=== PATIENT | female | born 1995 | race African-American/Black ===

== ENCOUNTER 2016-07-11 15:26 | Emergency (ER) | payer OTHER ==
[~2016-07-11] VITALS: Ht 167.6 cm; Wt 63.7 kg
[~2016-07-11 15:26] MED LIST: ENDOCET 5-3251 EACH PO; IBUPROFEN800 MG PO; MACROBID100 MG PO; MOBIC7.5 MG PO; NAPROSYN500 MG PO; NIFEDIPINE ER30 MG PO; PERCOCET 5/31 TABLET PO; PRENATAL FORMU1 EAC3 PO; PRENATAL PLUS1 EAC3 PO; PROMETHAZINE HC25 M1 PO; TAMIFLU30 MG PO; TORADOL10 MG PO; TYLENOL EXTRA500 MG PO; ZOFRAN ODT4 MG PO
[2016-07-11 16:24] LABS: HEMATOCRIT 46.5 % (36.0-46.0); MCH 25.5 PG (29.0-34.0); MCHC 33.8 G/DL (30.0-36.0); MCV 75.6 FL (83-99); MEAN PLAT.VOLUME 9.9 uM^3 (9.5-12.4); PLATELET COUNT 387 K/uL (156-360); RBC DIS.WIDTH-CV 15.5 % (11.8-14.6); RBC DIS.WIDTH-SD 42.1 % (39-53); RED BLOOD COUNT 6.15 M/uL (3.80-5.20); WHITE BLOOD COUNT 9.7 K/uL (4.1-10.2)
[2016-07-11 16:34] LABS: CHLORIDE 98 mEq/L (99-109); POTASSIUM 3.1 mEq/L (3.7-5.4); SODIUM 139 mEq/L (136-147)
[2016-07-11 16:37] LABS: GLUCOSE 108 mg/dL (70-99)
[2016-07-11 16:38] LABS: ANION GAP 12 MEQ/L (2-14)
[2016-07-11 16:39] LABS: TOTAL BILIRUBIN 0.8 mg/dL (0.0-1.0)
[2016-07-11 16:40] LABS: ALKALINE PHOSPHATASE 75 IU/L (3-129)
[2016-07-11 16:41] LABS: GFR ESTIMATE (CALCULATED) > 59 mL/min/
[2016-07-11 16:42] LABS: DIRECT BILIRUBIN 0.3 mg/dL (0.0-0.3); UREA NITROGEN (BUN) 22 mg/dL (9-23)
[2016-07-11 16:44] LABS: LIPASE 16 U/L (1.0-51.0)
[2016-07-11] MEDS ORDERED: ZOFRAN4 MG PO (17:23)
[2016-07-11 17:50] LABS: QUANTITATIVE HCG < 4.0 MIU/ML
[2016-07-11 18:06] VITALS: BP 125/80
== END 2016-07-11 18:31 | disposition home or self-care (01) ==
LOC: EME 15:26
PROVIDERS: Emergency Medicine
DX: E86.0 Dehydration (principal); R11.2 Nausea with vomiting, unspecified; F17.200 Nicotine dependence, unspecified, uncomplicated
CPT/HCPCS: 80048; 80076; 81003; 83690; 84702; 85027; 99281; 99284; J2405; J7030

== ENCOUNTER 2016-08-25 17:40 | Observation (INO) | payer OTHER ==
[~2016-08-25] VITALS: Ht 167.6 cm; Wt 65.7 kg
[~2016-08-25 17:40] MED LIST changes: +ZOFRAN4 MG PO
[2016-08-25 18:07] LABS: HEMATOCRIT 47.6 % (36.0-46.0); MCHC 32.8 G/DL (30.0-36.0); MCV 79.2 FL (83-99); MEAN PLAT.VOLUME 10.4 uM^3 (9.5-12.4); PLATELET COUNT 442 K/uL (156-360); RBC DIS.WIDTH-CV 14.7 % (11.8-14.6); RBC DIS.WIDTH-SD 42.2 % (39-53); RED BLOOD COUNT 6.01 M/uL (3.80-5.20); WHITE BLOOD COUNT 10.8 K/uL (4.1-10.2)
[2016-08-25 18:23] LABS: CHLORIDE 93 mEq/L (99-109); POTASSIUM 3.4 mEq/L (3.7-5.4); SODIUM 137 mEq/L (136-147)
[2016-08-25 18:25] LABS: GLUCOSE 120 mg/dL (70-99)
[2016-08-25 18:26] LABS: ANION GAP 14 MEQ/L (2-14)
[2016-08-25 18:28] LABS: ALKALINE PHOSPHATASE 63 IU/L (3-129)
[2016-08-25 18:29] LABS: GFR ESTIMATE (CALCULATED) 42 mL/min/
[2016-08-25 18:30] LABS: UREA NITROGEN (BUN) 29 mg/dL (9-23)
[2016-08-25 18:37] LABS: QUANTITATIVE HCG < 4.0 MIU/ML
[2016-08-25 19:50] LABS: LIPASE 7 U/L (1.0-51.0)
[2016-08-25 22:32] LABS: ADD MIUA? YES; BILIRUBIN NEGATIVE; BLOOD NEGATIVE; COLOR AMBER ((YELLOW)); GLUCOSE (STRIP) NEGATIVE; KETONES 20; LEUKOCYTES NEGATIVE; NITRITE NEGATIVE; PROTEIN (STRIP) 100; SPECIFIC GRAVITY 1.026 (1.000-1.030); UROBILINOGEN 0.2 MG/DL (0.2-1.0)
[2016-08-25 22:44] LABS: BACTERIA RARE /HPF; EPITHELIAL CELLS RARE /HPF; HYALINE CASTS 0-5 /LPF; MUCUS 4+ /LPF; RED BLOOD CELLS 0-5 /HPF (0-5); UCUL ADDED? NO; UNCLASSIFIED CASTS 0-5 /LPF
[2016-08-26 01:19] VITALS: BP 134/78
[2016-08-26 03:52] VITALS: BP 124/94
[2016-08-26 06:28] LABS: ALKALINE PHOSPHATASE 45 IU/L (3-129); ANION GAP 9 MEQ/L (2-14); CHLORIDE 104 MEQ/L (99-109); POTASSIUM 3.2 MEQ/L (3.7-5.4); SAMPLE HEMOLYSIS CHECK 0; SAMPLE ICTERIC CHECK 0; SAMPLE LIPEMIA CHECK 0; SODIUM 140 MEQ/L (136-147); TOTAL BILIRUBIN 0.8 MG/DL (0.0-1.0); UREA NITROGEN (BUN) 24 mg/dL (9-23)
[2016-08-26 07:38] VITALS: BP 122/65
[2016-08-26 08:05] LABS: GFR ESTIMATE (CALCULATED) > 59 mL/min/; GLUCOSE 78 mg/dL (70-99)
== END 2016-08-26 11:17 | disposition home or self-care (01) ==
LOC: EME 17:40 → EDOF 08-26 00:09 → 5WEST 08-26 01:05
PROVIDERS: Physician Assistant Medical
DX: N17.9 Acute kidney failure, unspecified (principal); E86.0 Dehydration; F12.90 Cannabis use, unspecified, uncomplicated; M79.605 Pain in left leg; M79.604 Pain in right leg; F17.200 Nicotine dependence, unspecified, uncomplicated
CPT/HCPCS: 74176; 74177; 80048 91; 80053; 80306 90; 81003; 83690; 84702; 85025; 85027; 99281; 99285; G0378; J1200; J1885; J2405; J2765; J3480; J7030

== ENCOUNTER 2017-01-18 22:55 | Emergency (ER) | payer OTHER ==
[~2017-01-18] VITALS: Ht 170.2 cm; Wt 68.3 kg
[2017-01-18 23:41] LABS: EOSINOPHIL (%) 0.3 % (0-5); HEMATOCRIT 38.4 % (36.0-46.0); IMMATURE GRANULOCYTE (%) 0.3 % (0.0-0.7); LYMPHOCYTE COUNT 2.2 K/uL (1.0-2.8); MCH 27.2 PG (29.0-34.0); MCHC 32.8 G/DL (30.0-36.0); MCV 82.8 FL (83-99); MEAN PLAT.VOLUME 9.7 uM^3 (9.5-12.4); MONOCYTE (%) 8.7 % (3-12); MONOCYTE COUNT 0.6 K/uL (0-0.8); NEUTROPHIL (%) 58.8 % (45-76); PLATELET COUNT 257 K/uL (156-360); RBC DIS.WIDTH-CV 13.2 % (11.8-14.6); RBC DIS.WIDTH-SD 39.8 % (39-53); RED BLOOD COUNT 4.64 M/uL (3.80-5.20); WHITE BLOOD COUNT 6.8 K/uL (4.1-10.2)
[2017-01-18 23:55] LABS: CHLORIDE 109 mEq/L (99-109); POTASSIUM 3.1 mEq/L (3.7-5.4); SODIUM 143 mEq/L (136-147)
[2017-01-18 23:57] LABS: GLUCOSE 87 mg/dL (70-99)
[2017-01-18 23:58] LABS: ANION GAP 15 MEQ/L (2-14)
[2017-01-19] LABS: SERUM ETHYL ALCOHOL < 10 mg/dL
[2017-01-19 00:01] LABS: GFR ESTIMATE (CALCULATED) > 59 mL/min/
[2017-01-19 00:02] LABS: UREA NITROGEN (BUN) 11 mg/dL (9-23)
[2017-01-19 00:10] LABS: QUANTITATIVE HCG < 4.0 MIU/ML
[2017-01-19 01:49] LABS: COCAINE PRESUMPTIVE POSITIVE (150 ng/mL); METHAMPHETAMINE NEGATIVE (500 ng/mL); PHENCYCLIDINE PRESUMPTIVE POSITIVE (25 ng/mL); THC CANNABINOIDS PRESUMPTIVE POSITIVE (50 ng/mL)
[2017-01-19 01:50] LABS: AMPHETAMINE NEGATIVE (500 ng/mL); BARBITURATES NEGATIVE (200 ng/mL); BENZODIAZEPINES NEGATIVE (150 ng/mL); METHADONE NEGATIVE (200 ng/mL); OPIATES (MORPHINE) NEGATIVE (100 ng/mL); OXYCODONE NEGATIVE (100 ng/mL); PROPOXYPHENE NEGATIVE (300 ng/mL); TRICYCLIC ANTIDEPRESSANTS NEGATIVE (300 ng/mL)
[2017-01-19 01:51] LABS: ADD MEDTOX COMMENT Y; INTERNAL CONTROLS VALID? YES
[2017-01-19 02:10] VITALS: BP 148/96
== END 2017-01-19 02:11 | disposition home or self-care (01) ==
LOC: EME → EDBD 22:55 → EME 01-19 02:11
PROVIDERS: Emergency Medicine
DX: F14.10 Cocaine abuse, uncomplicated (principal); F12.10 Cannabis abuse, uncomplicated; F16.10 Hallucinogen abuse, uncomplicated; F17.200 Nicotine dependence, unspecified, uncomplicated
CPT/HCPCS: 80048; 84702; 84999; 85025; 90839; 99281; 99283; G0480

== ENCOUNTER 2017-01-20 18:17 | Emergency (ER) | payer OTHER ==
[~2017-01-20] VITALS: Ht 167.6 cm; Wt 67.4 kg
[2017-01-20 18:20] VITALS: BP 139/89
[2017-01-20 18:58] LABS: HEMATOCRIT 38.7 % (36.0-46.0); MCH 27.5 PG (29.0-34.0); MCHC 33.3 G/DL (30.0-36.0); MCV 82.5 FL (83-99); MEAN PLAT.VOLUME 9.7 uM^3 (9.5-12.4); PLATELET COUNT 256 K/uL (156-360); RBC DIS.WIDTH-CV 13.2 % (11.8-14.6); RBC DIS.WIDTH-SD 39.6 % (39-53); RED BLOOD COUNT 4.69 M/uL (3.80-5.20); WHITE BLOOD COUNT 7.5 K/uL (4.1-10.2)
[2017-01-20 19:26] LABS: CHLORIDE 105 mEq/L (99-109); POTASSIUM 2.9 mEq/L (3.7-5.4); SODIUM 140 mEq/L (136-147)
[2017-01-20 19:28] LABS: GLUCOSE 87 mg/dL (70-99)
[2017-01-20 19:29] LABS: ANION GAP 15 MEQ/L (2-14)
[2017-01-20 19:31] LABS: SERUM ETHYL ALCOHOL < 10 mg/dL
[2017-01-20 19:32] LABS: GFR ESTIMATE (CALCULATED) > 59 mL/min/
[2017-01-20 19:34] LABS: UREA NITROGEN (BUN) 9 mg/dL (9-23)
[2017-01-20 19:35] LABS: SALICYLATE < 5.0 MG/DL (15-30)
== END 2017-01-20 19:50 | disposition left against medical advice (07) ==
LOC: EME 18:17
PROVIDERS: Emergency Medicine
DX: F12.10 Cannabis abuse, uncomplicated (principal); F14.10 Cocaine abuse, uncomplicated; E86.0 Dehydration; F17.200 Nicotine dependence, unspecified, uncomplicated
CPT/HCPCS: 80048; 85027; 99281; 99284; G0480; J7030

== ENCOUNTER 2017-01-21 11:55 | Inpatient (IN) | payer OTHER ==
[~2017-01-21] VITALS: Ht 167.6 cm; Wt 67.2 kg
[2017-01-21 12:32] LABS: EOSINOPHIL (%) 0.2 % (0-5); HEMATOCRIT 38.9 % (36.0-46.0); IMMATURE GRANULOCYTE (%) 0.2 % (0.0-0.7); INSTRUMENT ABS NEUTROPHIL CT 3.8 K/uL; LYMPHOCYTE COUNT 1.7 K/uL (1.0-2.8); MCH 27.1 PG (29.0-34.0); MCHC 33.2 G/DL (30.0-36.0); MCV 81.7 FL (83-99); MEAN PLAT.VOLUME 10.1 uM^3 (9.5-12.4); MONOCYTE (%) 9.3 % (3-12); MONOCYTE COUNT 0.6 K/uL (0-0.8); NEUTROPHIL (%) 62.4 % (45-76); NEUTROPHIL COUNT 3.8 K/uL (1.8-6.4); PLATELET COUNT 249 K/uL (156-360); RBC DIS.WIDTH-CV 13.2 % (11.8-14.6); RBC DIS.WIDTH-SD 39.2 % (39-53); RED BLOOD COUNT 4.76 M/uL (3.80-5.20)
[2017-01-21 12:44] LABS: CHLORIDE 107 mEq/L (99-109); POTASSIUM 2.9 mEq/L (3.7-5.4); SODIUM 141 mEq/L (136-147)
[2017-01-21 12:46] LABS: GLUCOSE 100 mg/dL (70-99)
[2017-01-21 12:47] LABS: ANION GAP 12 MEQ/L (2-14)
[2017-01-21 12:49] LABS: SERUM ETHYL ALCOHOL < 10 mg/dL
[2017-01-21 12:50] LABS: GFR ESTIMATE (CALCULATED) > 59 mL/min/
[2017-01-21 12:51] LABS: UREA NITROGEN (BUN) 8 mg/dL (9-23)
[2017-01-21 13:03] LABS: QUANTITATIVE HCG < 4.0 MIU/ML
[2017-01-21 14:29] LABS: ADD MIUA? YES; BILIRUBIN NEGATIVE; BLOOD MODERATE; COLOR AMBER ((YELLOW)); GLUCOSE (STRIP) NEGATIVE; KETONES 20; LEUKOCYTES SMALL; NITRITE NEGATIVE; PROTEIN (STRIP) 100; SPECIFIC GRAVITY 1.025 (1.000-1.030)
[2017-01-21 14:52] LABS: AMPHETAMINE NEGATIVE (500 ng/mL); BENZODIAZEPINES NEGATIVE (150 ng/mL); COCAINE PRESUMPTIVE POSITIVE (150 ng/mL); METHAMPHETAMINE NEGATIVE (500 ng/mL); OPIATES (MORPHINE) NEGATIVE (100 ng/mL); PHENCYCLIDINE PRESUMPTIVE POSITIVE (25 ng/mL); THC CANNABINOIDS PRESUMPTIVE POSITIVE (50 ng/mL)
[2017-01-21 14:53] LABS: ADD MEDTOX COMMENT Y; BARBITURATES NEGATIVE (200 ng/mL); INTERNAL CONTROLS VALID? YES; METHADONE NEGATIVE (200 ng/mL); OXYCODONE NEGATIVE (100 ng/mL); PROPOXYPHENE NEGATIVE (300 ng/mL); TRICYCLIC ANTIDEPRESSANTS NEGATIVE (300 ng/mL)
[2017-01-21 15:05] LABS: EPITHELIAL CELLS 3+ /HPF; MUCUS 1+ /LPF; WHITE BLOOD CELLS 15-20 /HPF (0-5)
[2017-01-21 15:06] LABS: BACTERIA 2+ /HPF; CASTS NONE SEEN /LPF; CRYSTALS NONE SEEN
[2017-01-21 18:51] VITALS: BP 114/56
[2017-01-22 07:37] VITALS: BP 129/102
[2017-01-23 07:57] VITALS: BP 129/88
[2017-01-23 15:40] VITALS: BP 114/72
[2017-01-24] MEDS ORDERED: BACTRIM,SEPT1 TABLET PO (09:50)
== END 2017-01-24 13:04 | disposition home or self-care (01) | DRG 897 ==
LOC: EME 11:55 → EDOF 17:18 → 1WEST 17:18 → ENRESERV 18:37 → 1WEST 18:44
PROVIDERS: Emergency Medicine
DX: F14.959 Cocaine use, unspecified with cocaine-induced psychotic disorder, unspecified (principal); F12.20 Cannabis dependence, uncomplicated; F14.94 Cocaine use, unspecified with cocaine-induced mood disorder; N39.0 Urinary tract infection, site not specified; R45.851 Suicidal ideations; Z78.1 Physical restraint status; E87.6 Hypokalemia; F17.200 Nicotine dependence, unspecified, uncomplicated; Z56.0 Unemployment, unspecified
CPT/HCPCS: 80048; 81003; 84702; 84999; 85025; 87086; 90839; 97150 GO; 97165 GO; 99281; 99285; G0480; J1630; J2060; J7030; Q0177

== ENCOUNTER 2017-01-25 17:27 | Emergency (ER) | payer OTHER ==
[~2017-01-25 17:27] MED LIST changes: +BACTRIM,SEPT1 TABLET PO
== END 2017-01-25 17:35 | disposition left against medical advice (07) ==
LOC: EME 17:27
DX: Z53.21 Procedure and treatment not carried out due to patient leaving prior to being seen by health care provider (principal)

== ENCOUNTER 2017-01-25 18:33 | Emergency (ER) | payer OTHER ==
[~2017-01-25] VITALS: Ht 170.2 cm; Wt 65.3 kg
[2017-01-25 20:31] LABS: HEMATOCRIT 42.7 % (36.0-46.0); MCH 27.5 PG (29.0-34.0); MCHC 33.5 G/DL (30.0-36.0); MCV 82.1 FL (83-99); MEAN PLAT.VOLUME 9.8 uM^3 (9.5-12.4); PLATELET COUNT 296 K/uL (156-360); RBC DIS.WIDTH-CV 13.1 % (11.8-14.6); RBC DIS.WIDTH-SD 39.3 % (39-53); WHITE BLOOD COUNT 7.8 K/uL (4.1-10.2)
[2017-01-25 20:44] LABS: CHLORIDE 106 mEq/L (99-109); SODIUM 142 mEq/L (136-147)
[2017-01-25 20:45] LABS: GLUCOSE 98 mg/dL (70-99)
[2017-01-25 20:47] LABS: ANION GAP 14 MEQ/L (2-14)
[2017-01-25 20:49] LABS: GFR ESTIMATE (CALCULATED) > 59 mL/min/; SERUM ETHYL ALCOHOL < 10 mg/dL
[2017-01-25 20:51] VITALS: BP 115/83
[2017-01-25 20:51] LABS: UREA NITROGEN (BUN) 11 mg/dL (9-23)
[2017-01-25 20:52] LABS: POTASSIUM 3.9 mEq/L (3.7-5.4); SALICYLATE < 5.0 MG/DL (15-30)
[2017-01-25 20:53] LABS: QUANTITATIVE HCG < 4.0 MIU/ML
== END 2017-01-25 20:55 | disposition home or self-care (01) ==
LOC: EME 18:33
PROVIDERS: Physician Assistant
DX: S83.91XA Sprain of unspecified site of right knee, initial encounter (principal); F19.10 Other psychoactive substance abuse, uncomplicated; W01.0XXA Fall on same level from slipping, tripping and stumbling without subsequent striking against object, initial encounter; Y93.01 Activity, walking, marching and hiking
CPT/HCPCS: 73564; 80048; 81003; 84702; 85027; 99281; 99284; G0480

== ENCOUNTER 2017-02-16 16:58 | Inpatient (IN) | payer OTHER ==
[~2017-02-16] VITALS: Ht 170.2 cm; Wt 68.9 kg
[2017-02-16 17:46] LABS: EOSINOPHIL (%) 0.3 % (0-5); HEMATOCRIT 36.2 % (36.0-46.0); IMMATURE GRANULOCYTE (%) 0.1 % (0.0-0.7); INSTRUMENT ABS NEUTROPHIL CT 3.4 K/uL; LYMPHOCYTE COUNT 2.8 K/uL (1.0-2.8); MCH 27.3 PG (29.0-34.0); MCHC 31.8 G/DL (30.0-36.0); MONOCYTE (%) 6.3 % (3-12); MONOCYTE COUNT 0.4 K/uL (0-0.8); NEUTROPHIL (%) 50.8 % (45-76); NEUTROPHIL COUNT 3.4 K/uL (1.8-6.4); PLATELET COUNT 257 K/uL (156-360); RBC DIS.WIDTH-CV 13.7 % (11.8-14.6); RBC DIS.WIDTH-SD 42.3 % (39-53); RED BLOOD COUNT 4.21 M/uL (3.80-5.20); WHITE BLOOD COUNT 6.7 K/uL (4.1-10.2)
[2017-02-16 17:49] LABS: CHLORIDE 111 mEq/L (99-109); POTASSIUM 3.8 mEq/L (3.7-5.4); SODIUM 143 mEq/L (136-147)
[2017-02-16 17:51] LABS: GLUCOSE 124 mg/dL (70-99)
[2017-02-16 17:52] LABS: ANION GAP 7 MEQ/L (2-14)
[2017-02-16 17:54] LABS: SERUM ETHYL ALCOHOL < 10 mg/dL
[2017-02-16 17:55] LABS: GFR ESTIMATE (CALCULATED) > 59 mL/min/
[2017-02-16 17:57] LABS: UREA NITROGEN (BUN) 14 mg/dL (9-23)
[2017-02-16 17:58] LABS: SALICYLATE < 5.0 MG/DL (15-30)
[2017-02-16 18:06] LABS: QUANTITATIVE HCG < 4.0 MIU/ML
[2017-02-16 22:07] VITALS: BP 123/71
[2017-02-16] MEDS ORDERED: OLANZAPINE10 MG PO (22:22)
[2017-02-16] MEDS ORDERED: QUETIAPINE FUM100 MG PO ×2 (22:23→22:24)
[2017-02-16] MEDS ORDERED: ZOLPIDEM TARTRAT5 MG PO (22:25)
[2017-02-16] MEDS ORDERED: HYDROXYZINE HCL50 MG PO (22:39)
[2017-02-17 07:55] VITALS: BP 126/83
[2017-02-17 12:07] LABS: AMPHETAMINES QUANT VALUE 0 NG/ML; BARBITUATES QUANT VALUE 0 NG/ML; BENZODIAZEPINES QUANT VALUE 0 NG/ML; BENZODIAZEPINES, URINE SCREEN Negative (200 ng/mL); OPIATES QUANTITATIVE VALUE 0 NG/ML; PHENCYCLIDINE QUANT VALUE 0 NG/ML
[2017-02-17 15:52] VITALS: BP 104/69
[2017-02-18 07:50] VITALS: BP 110/71
[2017-02-18 15:36] LABS: BACTERIA 1+ /HPF; EPITHELIAL CELLS 2+ /HPF; MUCUS 3+ /LPF; RED BLOOD CELLS NONE SEEN /HPF (0-5); WHITE BLOOD CELLS 0-5 /HPF (0-5)
[2017-02-18 15:37] LABS: CASTS NONE SEEN /LPF; CRYSTALS NONE SEEN
[2017-02-18 15:56] VITALS: BP 108/70
[2017-02-19 09:32] VITALS: BP 126/60
[2017-02-19 15:34] VITALS: BP 116/60
[2017-02-20 08:14] VITALS: BP 128/89
[2017-02-20] MEDS ORDERED: OLANZAPINE10 MG PO (10:47)
== END 2017-02-20 11:35 | disposition home or self-care (01) | DRG 897 ==
LOC: EME 16:58 → EDOF 19:15 → 1WEST 19:15 → ENRESERV 22:02 → 1WEST 22:02
PROVIDERS: Emergency Medicine; Psychiatry & Neurology Psychiatry
DX: F16.14 Hallucinogen abuse with hallucinogen-induced mood disorder (principal); R45.851 Suicidal ideations; F12.20 Cannabis dependence, uncomplicated; F14.90 Cocaine use, unspecified, uncomplicated; R44.3 Hallucinations, unspecified; Z78.1 Physical restraint status; Z68.1 Body mass index [BMI] 19.9 or less, adult; R10.30 Lower abdominal pain, unspecified; R19.7 Diarrhea, unspecified; R68.83 Chills (without fever)
CPT/HCPCS: 80048; 80306 90; 81003; 81015; 84702; 85025; 90837; 97150 GO; 97165 GO; 99281; 99285; G0480; J1200; J1630; J2060

== ENCOUNTER 2017-02-23 15:50 | Emergency (ER) | payer OTHER ==
[~2017-02-23] VITALS: Ht 170.2 cm; Wt 77.5 kg
[~2017-02-23 15:50] MED LIST changes: +HYDROXYZINE HCL50 MG PO; +OLANZAPINE10 MG PO; +QUETIAPINE FUM100 MG PO; +ZOLPIDEM TARTRAT5 MG PO
[2017-02-23 17:01] LABS: HEMATOCRIT 40.4 % (36.0-46.0); MCH 27.6 PG (29.0-34.0); MCHC 32.2 G/DL (30.0-36.0); MCV 85.8 FL (83-99); MEAN PLAT.VOLUME 9.7 uM^3 (9.5-12.4); PLATELET COUNT 266 K/uL (156-360); RBC DIS.WIDTH-CV 13.5 % (11.8-14.6); RBC DIS.WIDTH-SD 42.6 % (39-53); RED BLOOD COUNT 4.71 M/uL (3.80-5.20); WHITE BLOOD COUNT 7.1 K/uL (4.1-10.2)
[2017-02-23 17:10] LABS: CHLORIDE 108 mEq/L (99-109); POTASSIUM 3.9 mEq/L (3.7-5.4); SODIUM 141 mEq/L (136-147)
[2017-02-23 17:11] LABS: ADD MIUA? NO; BILIRUBIN NEGATIVE; BLOOD NEGATIVE; COLOR YELLOW ((YELLOW)); GLUCOSE 83 mg/dL (70-99); GLUCOSE (STRIP) NEGATIVE; KETONES NEGATIVE; LEUKOCYTES NEGATIVE; NITRITE NEGATIVE; PROTEIN (STRIP) NEGATIVE; SPECIFIC GRAVITY 1.028 (1.000-1.030); UROBILINOGEN 0.2 MG/DL (0.2-1.0)
[2017-02-23 17:13] LABS: ANION GAP 11 MEQ/L (2-14)
[2017-02-23 17:15] LABS: GFR ESTIMATE (CALCULATED) > 59 mL/min/
[2017-02-23 17:16] LABS: UREA NITROGEN (BUN) 18 mg/dL (9-23)
[2017-02-23 17:46] VITALS: BP 119/83
== END 2017-02-23 17:50 | disposition home or self-care (01) ==
LOC: EME 15:50
PROVIDERS: Nurse Practitioner Family
DX: B34.9 Viral infection, unspecified (principal); R51 Headache; R11.0 Nausea; R19.7 Diarrhea, unspecified; N91.2 Amenorrhea, unspecified; M25.561 Pain in right knee; M25.562 Pain in left knee
CPT/HCPCS: 80048; 81003; 84702; 85027; 99281; 99284

== ENCOUNTER 2017-11-13 14:30 | Emergency (ER) | payer OTHER ==
[~2017-11-13] VITALS: Ht 167.6 cm; Wt 68.3 kg
[2017-11-13 15:06] LABS: HEMATOCRIT 46.2 % (36.0-46.0); HEMOGLOBIN 15.1 G/DL (11.9-15.5); MCH 25.3 PG (29.0-34.0); MCHC 32.7 G/DL (30.0-36.0); MCV 77.5 FL (83-99); PLATELET COUNT 419 K/uL (156-360); RBC DIS.WIDTH-CV 15.2 % (11.8-14.6); RBC DIS.WIDTH-SD 42.2 % (39-53); RED BLOOD COUNT 5.96 M/uL (3.80-5.20); WHITE BLOOD COUNT 8.4 K/uL (4.1-10.2)
[2017-11-13 15:39] LABS: ALBUMIN 4.7 G/DL (3.2-4.8); ALKALINE PHOSPHATASE 67 IU/L (3-129); ALT (GPT) 78 IU/L (3-49); AST (GOT) 58 IU/L (2-34); CHLORIDE 95 MEQ/L (99-109); CREATININE 1.5 MG/DL (0.6-1.3); GFR ESTIMATE (CALCULATED) 55 mL/min/; GLUCOSE 118 mg/dL (70-99); LIPASE 18 U/L (1.0-51.0); POTASSIUM 3.1 MEQ/L (3.7-5.4); SODIUM 136 MEQ/L (136-147); TOTAL BILIRUBIN 0.9 MG/DL (0.0-1.0); TOTAL PROTEIN 7.9 G/DL (6.4-8.3); UREA NITROGEN (BUN) 27 mg/dL (9-23)
[2017-11-13 16:54] LABS: APPEARANCE CLEAR ((CLEAR)); BILIRUBIN SMALL; BLOOD LARGE; COLOR AMBER ((YELLOW)); GLUCOSE (STRIP) NEGATIVE; KETONES 20; LEUKOCYTES TRACE; NITRITE NEGATIVE; PROTEIN (STRIP) 100; SPECIFIC GRAVITY 1.035 (1.000-1.030)
[2017-11-13 17:22] LABS: INTER. NORMALIZED RATIO 1.2
[2017-11-13 17:24] LABS: PTT 27.9 SEC (25-37)
[2017-11-13 17:57] LABS: QUANTITATIVE HCG < 4.0 MIU/ML
[2017-11-13 18:03] LABS: BACTERIA 1+ /HPF; EPITHELIAL CELLS 1+ /HPF; MUCUS 1+ /LPF; UCUL ADDED? YES
[2017-11-13 18:14] LABS: AMPHETAMINE NEGATIVE (500 ng/mL); BARBITURATES NEGATIVE (200 ng/mL); BENZODIAZEPINES NEGATIVE (150 ng/mL); BUPRENORPHINE NEGATIVE (10 ng/mL); COCAINE PRESUMPTIVE POSITIVE (150 ng/mL); METHADONE NEGATIVE (200 ng/mL); METHAMPHETAMINE NEGATIVE (500 ng/mL); OPIATES (MORPHINE) NEGATIVE (100 ng/mL); OXYCODONE NEGATIVE (100 ng/mL); PHENCYCLIDINE NEGATIVE (25 ng/mL); PROPOXYPHENE NEGATIVE (300 ng/mL); THC CANNABINOIDS PRESUMPTIVE POSITIVE (50 ng/mL); TRICYCLIC ANTIDEPRESSANTS NEGATIVE (300 ng/mL)
[2017-11-13] MEDS ORDERED: KEFLEX500 MG PO (20:48)
[2017-11-13] MEDS ORDERED: ZOFRAN ODT4 MG PO (21:01)
[2017-11-13 21:18] VITALS: BP 1115/62
== END 2017-11-13 21:20 | disposition home or self-care (01) ==
LOC: EME 14:30
PROVIDERS: Nurse Practitioner Family
DX: R10.9 Unspecified abdominal pain (principal); R11.2 Nausea with vomiting, unspecified; E86.0 Dehydration; J45.909 Unspecified asthma, uncomplicated; Z88.6 Allergy status to analgesic agent
CPT/HCPCS: 74177; 80053; 81003; 83690; 84702; 84999; 85027; 85610; 85730; 87077; 87086; 99281; 99285; J2765; J3010; J7120